=== PATIENT | male | born 1980 | race Caucasian/White ===

== ENCOUNTER → 2020-06-22 09:43 | Outpatient (BNVA) | payer OTHER, SELFPAY | PROVIDERS: Visit Provider Family Medicine | DX: R50.9 Fever, unspecified (principal) | CPT/HCPCS: 87400; 87635 ==

== ENCOUNTER → 2022-08-19 13:25 | Outpatient (BNVA) | payer OTHER, SELFPAY | PROVIDERS: Visit Provider Nurse Practitioner | DX: F33.1 Major depressive disorder, recurrent, moderate (principal); F41.1 Generalized anxiety disorder; Z79.899 Other long term (current) drug therapy | CPT/HCPCS: 80061; 83036 ==

== ENCOUNTER → 2023-12-22 10:51 | Outpatient (BNVA) | payer OTHER, SELFPAY | PROVIDERS: Visit Provider Nurse Practitioner | DX: Z79.899 Other long term (current) drug therapy (principal) | CPT/HCPCS: 80061; 83036 ==

== ENCOUNTER 2024-01-24 15:57 | Emergency (ER) | payer SELFPAY ==
[2024-01-24] VITALS (8 sets, daily range): BP systolic 114–138; BP diastolic 74–91; PULSE 68–88; RESP 12–18; TEMP 36.5; O2SAT 93–97; BMI 24.5
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
[2024-01-24] MEDS: morphine 4 mg/mL SDV 1 mL IVP (16:20)
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
[2024-01-24] MEDS: HYDROmorphone 1 mg/mL INJ 1 mL IVP ×2 (17:12→18:22)
[2024-01-24] MEDS: HYDROcodone-acetaminophen 7.5-325 mg Tablet 2 TAB PO (18:15)
--- NOTE | 2024-01-25 08:22 | DCPLANNER ---
messaged ortho for er f/u
== END 2024-01-24 18:47 | disposition home or self-care (01) ==
PROVIDERS: Emergency Provider Emergency Medicine
DX: S82.202A Unspecified fracture of shaft of left tibia, initial encounter for closed fracture (principal); S82.402A Unspecified fracture of shaft of left fibula, initial encounter for closed fracture; V29.99XA Rider (driver) (passenger) of other motorcycle injured in unspecified traffic accident, initial encounter
CPT/HCPCS: 29515; 73590; 96374; 96375; 96376; 99284; E0114; J1170; J2270

== ENCOUNTER 2024-01-25 12:20 | Outpatient (CLI) | payer SELFPAY ==
--- NOTE | 2024-01-25 12:30 | CT_ITS ---
WS: [id number] CT LEFT LOWER EXTREMITY, NONCONTRAST HISTORY: FRACTURE OF DISTAL TIBIA Technique: All CT scans at [facility] use at least one of these dose optimization techniques: automated exposure control; mA and/or kV adjustment per patient size (includes targeted exams where dose is matched to clinical indication); or iterative reconstruction. DLP: 346.76 mGy.cm COMPARISON: Radiograph 01/25/2024 Tibia: Segmental fracture involving the mid to distal third of the tibia. Fracture extends over a damian gth of approximately 12.6 cm. Proximal fracture comminuted and by 8 mm. Continuing distally the fracture is becoming more displaced and fragmented. Fracture line continues to the distal tibia but does not extend to the articulation. Butterfly fragment extends over a length of 9.8 cm. Fibula: Oblique comminuted fracture involving the proximal fibula with mild posterior angulation. The re does also appear to be an additional fragment at the distal fracture site. Fracture does not exten d to the articulation. The remaining fibula is intact. Ankle mortise appears appropriate. There is a large amount of soft tissue edema at the fracture sites . CT/CT lower leg LT wo con* [id number] IMPRESSION: 1. Segmental fracture involves the mid to distal third of the tibia extending over a length of 12.6 cm. Butterfly fragment extends over a length of 9.8 cm. 2. Oblique comminuted fracture involving the proximal fibula with mild posteri or angulation.
== END 2024-01-25 12:21 | disposition home or self-care (01) ==
PROVIDERS: Visit Provider Specialist
DX: S82.262A Displaced segmental fracture of shaft of left tibia, initial encounter for closed fracture (principal); S82.832A Other fracture of upper and lower end of left fibula, initial encounter for closed fracture; X58.XXXA Exposure to other specified factors, initial encounter; Z01.818 Encounter for other preprocedural examination
CPT/HCPCS: 36415; 73590; 73700; 80053; 85025

== ENCOUNTER → 2024-01-26 09:20 | Day surgery (SDC) | payer SELFPAY ==
[2024-01-26] VITALS (13 sets, daily range): BP systolic 117–135; BP diastolic 67–85; PULSE 18–86; RESP 17–20; TEMP 36.2–37.5; O2SAT 90–98; BMI 24.5
[2024-01-26] MEDS: gabapentin 300 mg Capsule PO (09:58)
[2024-01-26] MEDS: sodium chloride 0.9% 1,000 ML 30 ML IV (09:58)
[2024-01-26] MEDS: acetaminophen 1,000 MG/100 ML PIGGYBACK 400 MG IV (09:59)
[2024-01-26] MEDS: CELEcoxib 200 mg Capsule 400 MG PO (09:59)
--- NOTE | 2024-01-26 11:17 | ANES.PREANE2 ---
Pre-Anesthetic Assessment Height/Weight: Height 6 ft 1 in Weight 186 lb Temp Pulse Resp BP Pulse Ox O2 Del Method 97.5 F L 74 18 117/75 94 Room Air 01/26/24 09:54 01/26/24 09:54 01/26/24 09:54 01/26/24 09:54 01/26/24 09:54 01/26/24 10:03 Preop Diagnosis: Tibial fracture Operation Date: 01/26/24 10:55 Proposed Procedures p IM Tibial Nail Insertion(Left) - Leda Perez MD Was Beta Anli taken within 24 hours: N/A Was Clonidine taken within 24 hours: N/A Last intake: Intake Last Liquid Date 01/25/24 Last Liquid Time 23:00 Last Solid Date 01/25/24 Last Solid Time 20:30 Social No alcohol and No tobacco Exam alert, oriented x 3, clear to auscultation bilaterally and regular rate & rhythm Airway Submandibular: within normal limits Cervical ROM: within normal limits Mallampati: Class III Dentition: full Comments: Comments: Poor mouth opening Anesthetic Plan ASA status: 2 Anesthesia: General and Regional (specify below) Other: No prior issues with anesthesia NPO since midnight Denies any cardiac or pulmonary issues Takes clonazepam and hydroxyzine for anxiety Labs 01/25/2024 reviewed and acceptable for surgery Plan for general anesthesia with preop nerve block Medications/Allergies Home Medications Medication Instructions Recorded Confirmed Last Taken Type hydroxyzine HCl 25 mg tablet 25 mg PO BID PRN anxiety #60 tabs 12/28/20 01/25/24 01/25/24 Rx aripiprazole 5 mg tablet (Abilify) 5 mg PO DAILY #30 tabs 11/11/23 01/26/24 01/26/24 08:50 Rx venlafaxine 150 mg 150 mg PO DAILY #30 caps 11/11/23 01/26/24 01/26/24 08:30 Rx capsule,extended release 24 hr (Effexor XR) venlafaxine 75 mg capsule,extended 75 mg PO DAILY #30 caps 11/11/23 01/25/24 01/25/24 Rx release 24 hr (Effexor XR) clonazepam 0.5 mg tablet 0.5 mg PO DAILY PRN anxiety #30 12/22/23 01/25/24 Unknown Rx tabs hydrocodone 5 mg-acetaminophen 325 1 tab PO Q6H PRN pain #14 tabs 01/24/24 01/26/24 01/26/24 08:30 Rx mg tablet ondansetron 4 mg disintegrating 4 mg PO Q6H PRN nausea and 01/24/24 01/25/24 01/25/24 Rx tablet vomiting #14 tabs Allergies Allergy/AdvReac Type Severity Reaction Status Date / Time No Known Allergies Allergy Verified 01/26/24 09:41 Current Medications Generic Name Dose Route Start Last Admin Trade Name Freq PRN Reason Stop Dose Admin Sodium Chloride 1,000 mls @ 30 mls/hr 01/26/24 09:45 01/26/24 09:58 Sodium Chloride 0.9% IV 01/27/24 09:44 30 mls/hr .Q24H GERBER Administration PFSH Anesthesia Medical History On combination antipsychotic drug therapy Psychiatric care Major depressive disorder, recurrent, moderate Generalized anxiety disorder Surgical History No pertinent past surgical history Family History Other Cancer Social History Smoking and tobacco/nicotine status: never used tobacco/nicotine Alcohol intake: current Alcohol intake frequency: few times a month Alcohol type: beer Substance/Drug Use: never Data Anesthesia Cardiac Studies: No Data to Display
--- NOTE | 2024-01-26 11:57 | ANES.PROC ---
Anesthesia Procedures Procedure/Date: 01/26/24 Nerve Block ^: Nerve Block 1: Main Anesthesia: other (100mcg fentanyl and 2mg versed) Time Out Performed: Yes Consent: requested by attending/covering physician Nerve block location: popliteal Anesthesia monitors applied: pulse oximetry, EKG, BP cuff and oxygen Nerve block position: supine Anesthetic Used: ropivicaine 0.5% Amount of anesthesia used (mL): 25 Ultrasound used to: recognize landmarks Nerve Stimulator Used?: Yes Interscalene/Femoral BLK: other needle (pjnura) Injection: neg aspiration of heme Patient Tolerated Procedure: well Complications: none Additional Comments: decadron 4mg added to block Nerve Block 2: Main Anesthesia: other Time Out Performed: Yes Consent: requested by attending/covering physician Nerve block location: adductor canal Anesthesia monitors applied: pulse oximetry, EKG, BP cuff and oxygen Nerve block position: supine Anesthetic Used: ropivicaine 0.5% Amount of anesthesia used (mL): 15 Ultrasound used to: recognize landmarks Nerve Stimulator Used?: No Interscalene/Femoral BLK: other needle (pjunk) and visualize local anesthetic spread Injection: neg aspiration of heme Patient Tolerated Procedure: well Complications: none
--- NOTE | 2024-01-26 12:00 | PC.NURSE ---
Nerve block done on left leg by Dr. Guzman with 40ml 0.5 bupivicaine.
--- NOTE | 2024-01-26 12:02 | P.HPUD_ITS ---
Surgery/Procedure H&P Update DATE OF PROCEDURE: January 26, 2024 DATE H&P PERFORMED: 01/25/24 H&P UPDATE INFORMATION: I have reviewed H&P completed within last 30 days, I have examined patient prior to procedure, No changes to prior documentation and H&P is in [facility] [place] date indicated PREOP DIAGNOSIS: Tibial fracture, left PLANNED PROCEDURE: Operation Date: 01/26/24 10:55 Proposed Procedures p IM Tibial Nail Insertion(Left) - Leda Perez MD Related Problem List Diagnoses (1) Closed left tibial fracture: Qualifiers: Encounter type: initial encounter Fracture alignment: displaced Fracture morphology: segmental Tibia location: shaft Qualified Code(s): S82.262A - Displaced segmental fracture of shaft of left tibia, initial encounter for closed fracture (2) Fracture of left fibula: Qualifiers: Encounter type: initial encounter Fibula location: proximal Fracture morphology: other fracture Fracture type: closed Qualified Code(s): S82.832A - Other fracture of upper and lower end of left fibula, initial encounter for closed fracture
[2024-01-26] MEDS: ceFAZolin 2,000 mg SDV 2000 MG IVP (12:36)
[2024-01-26] MEDS: ceFAZolin 1,000 mg SDV 1000 MG IRRIGATION (13:25)
--- NOTE | 2024-01-26 14:55 | XR_ITS ---
WS: [id number] Exam: XR tibia fibula LT 2V [id number] Date/Time of Exam: 01/26/2024 2:55 PM Reason For Exam: OR PICS Limited intraoperative C-arm images of the LEFT lower leg are submitted. Comminuted fracture of the l ower tibia is stabilized with a long intramedullary ba and screws. There is limited visualization of the fracture itself. Also noted is a fracture of the upper fibula which has been described previousl erasto
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
--- NOTE | 2024-01-26 15:23 | XR_ITS ---
WS: [id number] Exam: XR tibia fibula LT 2V [id number] Date/Time of Exam: 01/26/2024 3:28 PM Reason For Exam: S/P Left tibia ORIF with tibial ba. Comminuted spiral fracture of the lower one third of the tibia is now stabilized with a long intramed ullary ba in satisfactory alignment for healing. There is a spiral fracture of the upper diaphysis o f the fibula with [id number] apposition. Surgical skin clips are seen in both the upper and lower a spects of the lower leg. XR/XR tibia fibula LT 2V [id number] IMPRESSION: 1. Satisfactory internal fixation involving a comminuted spiral fracture of the lower tibia. 2. Spiral fracture of the upper fibula also appears to be in satisfactory posit ion for healing.
[2024-01-26] MEDS: fentaNYL 50 mcg/mL INJ 2mL IVP (15:25)
[2024-01-26] MEDS: HYDROcodone-acetaminophen 5-325 mg Tablet 1 TAB PO (16:06)
--- NOTE | 2024-01-26 16:44 | ANE.PACU2 ---
Inpatient post-anesthesia follow up: Airway intact: Yes Vital signs: Temperature 97.2 F Pulse Rate 68 Respiratory Rate 18 Blood Pressure 124/78 Pulse Oximetry 98 Oxygen Delivery Me thod Room Air Oxygen Flow Rate Fraction of Inspir ed Oxygen Hydration adequate: Yes Nausea and vomiting: No Pain level: 1 Mental status: Baseline
== END | disposition home or self-care (01) ==
PROVIDERS: Visit Provider Specialist
PROC: (CPT 27758; principal; 2024-01-26 10:35)
DX: S82.262A Displaced segmental fracture of shaft of left tibia, initial encounter for closed fracture (principal); S82.832A Other fracture of upper and lower end of left fibula, initial encounter for closed fracture; V29.99XA Rider (driver) (passenger) of other motorcycle injured in unspecified traffic accident, initial encounter; F41.1 Generalized anxiety disorder; Y92.9 Unspecified place or not applicable
CPT/HCPCS: 27758; 73590; 76000; C1713; J0131; J0690; J1100; J2405; J2704; J3010; J7030

== ENCOUNTER → 2024-02-08 08:47 | Outpatient (BNVA) | payer SELFPAY | PROVIDERS: Visit Provider Nurse Practitioner | DX: S82.262D Displaced segmental fracture of shaft of left tibia, subsequent encounter for closed fracture with routine healing; S82.832D Other fracture of upper and lower end of left fibula, subsequent encounter for closed fracture with routine healing; X58.XXXD Exposure to other specified factors, subsequent encounter; Z98.890 Other specified postprocedural states | CPT/HCPCS: 73590 ==

== ENCOUNTER → 2024-02-22 10:00 | Outpatient (BNVA) | payer SELFPAY | PROVIDERS: Visit Provider Nurse Practitioner | DX: Z98.890 Other specified postprocedural states (principal); S82.262A Displaced segmental fracture of shaft of left tibia, initial encounter for closed fracture; S82.262D Displaced segmental fracture of shaft of left tibia, subsequent encounter for closed fracture with routine healing; S82.832D Other fracture of upper and lower end of left fibula, subsequent encounter for closed fracture with routine healing; X58.XXXD Exposure to other specified factors, subsequent encounter | CPT/HCPCS: 73590 ==

== ENCOUNTER 2024-03-16 01:58 | Emergency (ER) | payer SELFPAY ==
[2024-03-16 02:04] VITALS: BP 140/93; PULSE 79; RESP 18; TEMP 36.7; O2SAT 99; BMI 24.4
--- NOTE | 2024-03-16 02:06 | XRR_ITS ---
PROCEDURE INFORMATION: Exam: XR Left Tibia and Fibula Exam date and time: 03/16/2024 2:13 AM Age: 43 years old Clinical indication: Pain; Lower leg; Left; Prior surgery; Surgery date: <1 month; Surgery type: Tibia ba; Additional info: Recent FX, more pain TECHNIQUE: Imaging protocol: Radiologic exam of the left tibia and fibula. Views: 2 views. COMPARISON: CR XR tibia fibula LT 2V [id number] 02/22/2024 10:15 AM FINDINGS: Bones/joints: Oblique orientation mildly-displaced fracture lucency of the proximal fibula diaphysis redemonstrated with early bone callus changes. Spiral type distal tibial diaphyseal fracture treated with intramedullary ba redemonstrated. No interval change in alignment. No hardware loosening is identified. Minimal early bone callus at the fracture margins. Unremarkable left ankle mortise. Unremarkable left knee joint. Soft tissues: Unremarkable. XR/XR tibia fibula LT 2V [id number] IMPRESSION: Early healing changes in the tibiofibular fractures without complication identified.
[2024-03-16] MEDS: ketorolac 60 mg/2 mL INJ IM (02:28)
--- NOTE | 2024-03-16 02:41 | ED_ITS ---
HPI - Extremity Problem General: Chief complaint: Extremity Injury, Lower Stated complaint: Left Ankle Pain Time Seen by Provider: 03/16/24 02:04 History of Present Illness: Patient presents to the ER with complaints about severe pain starting yesterday around 10 PM of his left lower extremity, patient has a tib-fib fracture with operative intervention approximately 5 weeks ago. Said he was doing better. Patient did not have any trauma to it last night when the pain worsened. Patient has no other complaints at this time. Patient presented to the ER with his walking boot intact. Related Data Previous Rx's Medication Instructions Recorded hydroxyzine HCl 25 mg tablet 25 mg PO BID PRN anxiety #60 tabs 12/28/20 aripiprazole 5 mg tablet (Abilify) 5 mg PO DAILY #30 tabs 11/11/23 venlafaxine 150 mg 150 mg PO DAILY #30 caps 11/11/23 capsule,extended release 24 hr (Effexor XR) venlafaxine 75 mg capsule,extended 75 mg PO DAILY #30 caps 11/11/23 release 24 hr (Effexor XR) clonazepam 0.5 mg tablet 0.5 mg PO DAILY PRN anxiety #30 12/22/23 tabs ondansetron 4 mg disintegrating 4 mg PO Q6H PRN nausea and 01/24/24 tablet vomiting #14 tabs cyclobenzaprine 10 mg tablet 5 mg (1/2 x 10 mg) PO TID PRN 02/08/24 muscle spasm #14 tabs hydrocodone 5 mg-acetaminophen 325 1 tab PO Q6H PRN pain 7 days #14 03/04/24 mg tablet tabs Allergies Allergy/AdvReac Type Severity Reaction Status Date / Time No Known Allergies Allergy Verified 03/16/24 02:08 Review of Systems General: Reports: 10 or more systems reviewed and unremarkable except in HPI and below PFSH ED PFSH: Medical History On combination antipsychotic drug therapy Psychiatric care Major depressive disorder, recurrent, moderate Generalized anxiety disorder Surgical History Status post surgery Date of procedure: January 26, 2024 Pre-op diagnosis: Left comminuted tibial shaft fracture with proximal fibula fracture. Procedure done: Open reduction internal fixation left tibial shaft fracture utilizing [place] intramedullary nail. Implants: The [place] T2 tibial system with a size 11 mm x 390 mm tibial nail, 2 locking screws proximally and 1 locking screw distally as well as an 11.5 mm x 10 mm end cap. Surgeon: Leda Perez MD. No pertinent past surgical history Family History Other Cancer Social History Smoking and tobacco/nicotine status: never used tobacco/nicotine Alcohol intake: current Alcohol intake frequency: few times a month Alcohol type: beer Substance/Drug Use: never Physical Exam Const: COMMON NORMALS: no acute distress, average body habitus, patient oriented x3, no limitations, healthy appearing, alert and well nourished HENMT: COMMON NORMALS: normocephalic, atraumatic, hearing grossly normal bilaterally, external ears normal, Normal external nose present and moist oral m ucous membranes HEAD & SCALP: normocephalic and atraumatic NOSE: Normal external nose present EXTERNAL EAR: Yes external ears normal Neck/C-Spine: COMMON NORMALS: no JVD Chest: COMMONS NORMALS: normal inspection of the chest and normal palpation of entire chest wall Resp: COMMON NORMALS: No retractions, No use of accessory muscles and clear to auscultation bilaterally AUSCULTATION: clear to auscultation bilaterally Cardio: COMMON NORMALS: no JVD, regular rate, regular rhythm, S1 normal heart sound present, S2 normal heart sound present, No gallops present (Cardio), No clicks present (Cardio), No murmurs present (Cardio) and No rub (Cardio) RATE: regular rate RHYTHM: regular rhythm HEART SOUNDS: S1 normal heart sound present and S2 normal heart sound present GI: COMMON NORMALS: Normal to inspection, nondistended, normoactive bowel sounds present, Soft to palpation, non-tender, No hepatosplenomegaly present and no masses PALPATION: Yes Soft to palpation and Yes No hepatosplenomegaly present Neuro: COMMON NORMALS: patient oriented x3 SENSORIUM/ORIENTATION: Yes alert Course Vital Signs: Vital signs: Vital Signs Temperature 98.0 F 03/16/24 02:04 Pulse Rate 79 03/16/24 02:04 Respiratory Rate 18 03/16/24 02:04 Blood Pressure 140/93 11/20/24 02:04 Pulse Oximetry 99 03/16/24 02:04 Oxygen Delivery Me thod Room Air 03/16/24 02:04 MDM - Extremity (Nontraumatic) Medical Decision Making X-ray of tib-fib showed early healing changes of the tibial fibular fractures without complications identified. Patient given Toradol 60 mg IM. Patient be discharged home. Medical Records I reviewed the patient's medical records. Lab Data I reviewed the patient's lab results. Radiology Impressions Tibia/Fibula X-Ray 03/16/24 02:06 IMPRESSION: Early healing changes in the tibiofibular fractures without complication identified. All radiology interpretation(s) finalized by discharge Discharge Plan Discharge Patient Disposition: Home Clinical Impression: Ankle fracture Qualifiers: Encounter type: subsequent encounter Fracture type: closed Laterality: left Fracture healing: with routine healing Qualified Code(s): S82.892D - Other fracture of left lower leg, subsequent encounter for closed fracture with routine healing Condition: Stable Prescriptions: No Action clonazepam 0.5 mg tablet 0.5 mg PO DAILY PRN (Reason: anxiety) Qty: 30 0RF cyclobenzaprine 10 mg tablet 5 mg PO TID PRN (Reason: muscle spasm) Qty: 14 0RF hydroxyzine HCl 25 mg tablet 25 mg PO BID PRN (Reason: anxiety) Qty: 60 2RF aripiprazole [Abilify] 5 mg tablet 5 mg PO DAILY Qty: 30 2RF venlafaxine [Effexor XR] 75 mg capsule,extended release 24hr 75 mg PO DAILY Qty: 30 2RF venlafaxine [Effexor XR] 150 mg capsule,extended release 24hr 150 mg PO DAILY Qty: 30 2RF hydrocodone-acetaminophen 5-325 mg tablet 1 tab PO Q6H PRN (Reason: pain) 7 Days Qty: 14 0RF ondansetron 4 mg tablet,disintegrating 4 mg PO Q6H PRN (Reason: nausea and vomiting) Qty: 14 0RF Discharge Orders: Discharge ED (Routine); Ordered 03/16/24 Ordered By: Shahriar Darden Referrals: [facility], [Primary Care Provider] - 1 week Activity Restrictions/Additional Instructions: The x-ray taken showed your fracture is healing well without any complications. Please follow-up with your orthopedic surgeon as previously scheduled. Thank you for choosing [facility] for your healthcare needs today. Please realize that you were seen in the emergency department and that we are providing you with an emergency medical screening exam and this may not be a complete and all exclusive of all testing and/or medical workup we may need to determine your element or severity of your illness. It is very important that you follow-up as instructed with your primary care provider or specialist for the additional evaluation and to discuss your medical treatment plan. You may return to the emergency department should you have concerns or if your condition changes or worsens in any way. Coding Level of Care Code ED C[employer] Operator for Carmen Longoria
[2024-03-16 03:58] VITALS: BP 131/94; PULSE 56; O2SAT 99
== END 2024-03-16 03:59 | disposition home or self-care (01) ==
PROVIDERS: Emergency Provider Emergency Medicine
DX: S82.892D Other fracture of left lower leg, subsequent encounter for closed fracture with routine healing (principal); X58.XXXD Exposure to other specified factors, subsequent encounter
CPT/HCPCS: 73590; 96372; 99284; J1885

== ENCOUNTER 2024-03-19 15:07 | Emergency (ER) | payer SELFPAY ==
[2024-03-19 15:41] VITALS: BP 112/76; PULSE 72; RESP 18; TEMP 37.4; O2SAT 96; BMI 24.5
--- NOTE | 2024-03-19 15:46 | XRR_ITS ---
PROCEDURE INFORMATION: Exam: XR Left Tibia and Fibula Exam date and time: 03/19/2024 4:35 PM Age: 43 years old Clinical indication: Lower leg; Left; Prior surgery; Surgery date: 6+ months; Surgery type: Lt tibial fixation; Patient HX: Lt lower extremity pain; Post op x 2mo ago TECHNIQUE: Imaging protocol: Radiologic exam of the left tibia and fibula. Views: 2 views. COMPARISON: CR (LOW EXM, ) 03/16/2024 2:13 AM FINDINGS: Bones/joints: Early healing changes again seen of proximal fibular diaphysis fracture distal tibial diaphyseal fracture with intramedullary ba. No significant change of fracture alignment. Unremarkable left knee joint. Soft tissues: Normal. XR/XR tibia fibula LT 2V [id number] IMPRESSION: As above.
--- NOTE | 2024-03-19 18:23 | W.ED.EXTPRO ---
HPI - Extremity Problem General: Chief complaint: Extremity Problem,Nontraumatic Stated complaint: increased pain in right ankel injury Time Seen by Provider: 03/19/24 15:23 History of Present Illness: John Uriostegui is a 43-year-old male that presents to the emergency department with left medial ankle pain. Onset of symptoms approximately 4 days ago. Patient states he fractured his tibia and fibula in early January. This operatively fixed. Has had follow-up with Dr. Perez since then and was doing well. At the beginning of February he increased his activity. He did not initially see any worsening symptoms but in the last 4 days he has developed this burning tearing pain medial ankle with numbness in the dorsum of the foot. He has no wounds. He does have left lower extremity swelling. He states that this has not changed in the last couple months. Patient denies any trauma He denies any new injuries to the area He is wearing his walking boot when he is ambulatory but otherwise taking it off at rest. Related Data Previous Rx's Medication Instructions Recorded hydroxyzine HCl 25 mg tablet 25 mg PO BID PRN anxiety #60 tabs 12/28/20 aripiprazole 5 mg tablet (Abilify) 5 mg PO DAILY #30 tabs 11/11/23 venlafaxine 150 mg 150 mg PO DAILY #30 caps 11/11/23 capsule,extended release 24 hr (Effexor XR) venlafaxine 75 mg capsule,extended 75 mg PO DAILY #30 caps 11/11/23 release 24 hr (Effexor XR) clonazepam 0.5 mg tablet 0.5 mg PO DAILY PRN anxiety #30 12/22/23 tabs ondansetron 4 mg disintegrating 4 mg PO Q6H PRN nausea and 01/24/24 tablet vomiting #14 tabs cyclobenzaprine 10 mg tablet 5 mg (1/2 x 10 mg) PO TID PRN 02/08/24 muscle spasm #14 tabs hydrocodone 5 mg-acetaminophen 325 1 tab PO Q6H PRN pain 7 days #14 03/16/24 mg tablet tabs Allergies Allergy/AdvReac Type Severity Reaction Status Date / Time No Known Allergies Allergy Verified 03/19/24 15:47 Review of Systems General: Reports: 10 or more systems reviewed and unremarkable except in HPI and below PFSH ED PFSH: Medical History On combination antipsychotic drug therapy Psychiatric care Major depressive disorder, recurrent, moderate Generalized anxiety disorder Surgical History Status post surgery Date of procedure: January 26, 2024 Pre-op diagnosis: Left comminuted tibial shaft fracture with proximal fibula fracture. Procedure done: Open reduction internal fixation left tibial shaft fracture utilizing [place] intramedullary nail. Implants: The [place] T2 tibial system with a size 11 mm x 390 mm tibial nail, 2 locking screws proximally and 1 locking screw distally as well as an 11.5 mm x 10 mm end cap. Surgeon: Leda Perez MD. No pertinent past surgical history Family History Other Cancer Social History Smoking and tobacco/nicotine status: never used tobacco/nicotine Alcohol intake: current Alcohol intake frequency: few times a month Alcohol type: beer Substance/Drug Use: never Physical Exam Const: COMMON NORMALS: no acute distress, average body habitus, patient oriented x3 and healthy appearing Neck/C-Spine: COMMON NORMALS: no JVD Resp: COMMON NORMALS: normal respiratory effort, No retractions and No use of accessory muscles Cardio: COMMON NORMALS: no JVD and Peripheral pulses 2+ throughout PERIPHERAL PULSES: Peripheral pulses 2+ throughout Extremity: OTHER: Left lower extremity: Skin is clean dry and intact Surgical scars are well-healed He has full active range of motion of the knee He has full active range of motion of the ankle He is tender to palpation over the medial ankle extending into the hindfoot. He has numbness in the dorsum of the foot He is able to dorsiflex plantarflex the foot Is able to dorsiflex great toe Negative Rishabh Pedal pulses are palpable Sensation intact to light touch but has a numbness in the dorsum of the foot Neuro: COMMON NORMALS: patient oriented x3 Psych: COMMON NORMALS: mental status grossly normal, Normal thought process present, cooperative, normal affect and activity/motor behavior normal THOUGHT PROCESS: Normal thought process present Course Vital Signs: Vital signs: Vital Signs Temperature 99.3 F 03/19/24 15:41 Pulse Rate 72 03/19/24 15:41 Respiratory Rate 18 03/19/24 15:41 Blood Pressure 112/76 03/19/24 15:41 Pulse Oximetry 96 03/19/24 15:41 Oxygen Delivery Me thod Room Air 03/19/24 15:41 MDM - Extremity (Nontraumatic) Medical Decision Making Patient evaluated in the emergency department today for left ankle pain. He underwent XR imaging of the left tibia/fibula despite ankle imaging ordered. The mortise appears to be symmetrical. There is no subluxation in the ankle joint. Of note the distal locking screw appears to be fractured. This is new from his last image at his surgeon's office. Does not appear that the nail has changed position and the tibial shaft fracture reveals interval healing. Talked with patient about diagnostic findings as well as his symptoms. He is wearing his boot over his clothing. He is wearing thicker clothing that may be causing a pressure injury to the medial ankle. I talked with him about using it barriers between the boot and his skin but to ensure that the material is not too thick to cause pressure points. I have advised him to ice and elevate the extremity. Of also advised him to use NSAIDs and Tylenol. He needs to follow-up with Dr. Perez. He has a follow-up appointment on Thursday. At this time no further diagnostics are warranted. Will have him follow-up with his surgeon and return to the emergency department as needed for new concerning or worsening symptoms Lab Data Radiology Impressions Tibia/Fibula X-Ray 03/19/24 15:46 IMPRESSION: As above. All radiology interpretation(s) finalized by discharge Discharge Plan Discharge Patient Disposition: Home Clinical Impression: Status post surgery, Acute ankle pain, Localized swelling of left lower extremity Condition: Stable Prescriptions: No Action clonazepam 0.5 mg tablet 0.5 mg PO DAILY PRN (Reason: anxiety) Qty: 30 0RF cyclobenzaprine 10 mg tablet 5 mg PO TID PRN (Reason: muscle spasm) Qty: 14 0RF hydroxyzine HCl 25 mg tablet 25 mg PO BID PRN (Reason: anxiety) Qty: 60 2RF aripiprazole [Abilify] 5 mg tablet 5 mg PO DAILY Qty: 30 2RF venlafaxine [Effexor XR] 75 mg capsule,extended release 24hr 75 mg PO DAILY Qty: 30 2RF venlafaxine [Effexor XR] 150 mg capsule,extended release 24hr 150 mg PO DAILY Qty: 30 2RF hydrocodone-acetaminophen 5-325 mg tablet 1 tab PO Q6H PRN (Reason: pain) 7 Days Qty: 14 0RF ondansetron 4 mg tablet,disintegrating 4 mg PO Q6H PRN (Reason: nausea and vomiting) Qty: 14 0RF Discharge Orders: Discharge ED (Routine); Ordered 03/19/24 Ordered By: Elie Angel Discharge Diet: Advance as tolerated Discharge Activity: Resume usual activity Patient Instructions: Pain Management (ED), Pain Management After Surgery (DC), Opioid Safety, Pain Management Activity Restrictions/Additional Instructions: Please keep a barrier between your skin and the boot.. Bulky materials as this may cause pressure on your skin. Ice and elevate the extremity use NSAIDs like ibuprofen, Voltaren/diclofenac, naproxen as well as Tylenol. Follow-up with Dr. Perez as planned Coding Level of Care Code ED [employer] Instructor for Carmen Longoria
[2024-03-19] MEDS: ketorolac 60 mg/2 mL INJ IM (18:36)
[2024-03-19 18:59] VITALS: BP 133/79; PULSE 74; RESP 16; O2SAT 97
== END 2024-03-19 19:01 | disposition home or self-care (01) ==
PROVIDERS: Emergency Provider Nurse Practitioner
DX: M25.572 Pain in left ankle and joints of left foot (principal); R22.42 Localized swelling, mass and lump, left lower limb; Z98.890 Other specified postprocedural states
CPT/HCPCS: 73590; 96372; 99284; J1885

== ENCOUNTER → 2024-03-22 11:27 | Outpatient (BNVA) | payer SELFPAY | PROVIDERS: Visit Provider Nurse Practitioner | DX: Z98.890 Other specified postprocedural states (principal); S82.262D Displaced segmental fracture of shaft of left tibia, subsequent encounter for closed fracture with routine healing; X58.XXXD Exposure to other specified factors, subsequent encounter | CPT/HCPCS: 73590 ==

== ENCOUNTER → 2024-03-28 15:36 | Outpatient (BNVA) | payer SELFPAY | PROVIDERS: Visit Provider Nurse Practitioner | DX: S82.262D Displaced segmental fracture of shaft of left tibia, subsequent encounter for closed fracture with routine healing; X58.XXXD Exposure to other specified factors, subsequent encounter; Z98.890 Other specified postprocedural states | CPT/HCPCS: 73590 ==

== ENCOUNTER 2024-05-08 18:42 | Emergency (ER) | payer SELFPAY ==
[2024-05-08 19:12] VITALS: BP 112/80; PULSE 81; RESP 14; TEMP 36.7; O2SAT 98; BMI 24.5
--- NOTE | 2024-05-08 20:40 | ED_ITS ---
HPI - Extremity Problem General: Chief complaint: Extremity Injury, Lower Stated complaint: L. leg ty giving problems Time Seen by Provider: 05/08/24 20:10 Source: patient Mode of arrival: ambulatory Limitations: no limitations History of Present Illness: 43-year-old male history of left lower l eg fracture he is currently in a cast he states he is supposed to have the cast off last week they have rescheduled appointment he states he wants the cast off today as it is rubbing on him and he has an abrasion to his toe it is causing pain he has no other complaints at this time Associated symptoms: Deny chest pain, fever(s) or rash Related Data Previous Rx's Medication Instructions Recorded hydroxyzine HCl 25 mg tablet 25 mg PO BID PRN anxiety #60 tabs 12/28/20 clonazepam 0.5 mg tablet 0.5 mg PO DAILY PRN anxiety #30 12/22/23 tabs ondansetron 4 mg disintegrating 4 mg PO Q6H PRN nausea and 01/24/24 tablet vomiting #14 tabs cyclobenzaprine 10 mg tablet 5 mg (1/2 x 10 mg) PO TID PRN 02/08/24 muscle spasm #14 tabs meloxicam 15 mg tablet 15 mg PO DAILY #30 tabs 03/22/24 hydrocodone 5 mg-acetaminophen 325 1 tab PO Q6H PRN pain 7 days #14 04/01/24 mg tablet tabs aripiprazole 5 mg tablet (Abilify) 5 mg PO DAILY #30 tabs 05/03/24 venlafaxine 150 mg 150 mg PO DAILY #30 caps 05/03/24 capsule,extended release 24 hr (Effexor XR) venlafaxine 75 mg capsule,extended 75 mg PO DAILY #30 caps 05/03/24 release 24 hr (Effexor XR) Allergies Allergy/AdvReac Type Severity Reaction Status Date / Time No Known Allergies Allergy Verified 05/08/24 19:15 Review of Systems Const: Denies: fever(s) or chills ENMT: Denies: throat pain or dental pain Card: Denies: chest pain Resp: Denies: dyspnea GI: Denies: abdominal pain, nausea, vomiting or diarrhea Musc: Reports: extremity pain; Denies: neck pain or back pain Skin/Breast: Denies: rash Neuro: Denies: headache(s) PFSH ED PFSH: Medical History On combination antipsychotic drug therapy Psychiatric care Major depressive disorder, recurrent, moderate Generalized anxiety disorder Surgical History Status post surgery Date of procedure: January 26, 2024 Pre-op diagnosis: Left comminuted tibial shaft fracture with proximal fibula fracture. Procedure done: Open reduction internal fixation left tibial shaft fracture utilizing [place] intramedullary nail. Implants: The [place] T2 tibial system with a size 11 mm x 390 mm tibial nail, 2 locking screws proximally and 1 locking screw distally as well as an 11.5 mm x 10 mm end cap. Surgeon: Leda Perez MD. No pertinent past surgical history Family History Other Cancer Social History Smoking and tobacco/nicotine status: never used tobacco/nicotine Alcohol intake: current Alcohol intake frequency: few times a month Alcohol type: beer Substance/Drug Use: never Physical Exam Const: COMMON NORMALS: no acute distress, patient oriented x3 and healthy appearing HENMT: COMMON NORMALS: normocephalic and atraumatic HEAD & SCALP: normocephalic and atraumatic Eye: COMMON NORMALS: conjunctivae normal CONJUNCTIVA: Yes conjunctivae normal Neck/C-Spine: COMMON NORMALS: full ROM and supple Chest: COMMONS NORMALS: normal inspection of the chest Resp: COMMON NORMALS: normal respiratory effort Extremity: COMMON NORMALS: full ROM NARRATIVE EXTREMITY EXAM: Cast in place to left lower leg does have abrasion to left great toe from rubbing on the cast Neuro: COMMON NORMALS: patient oriented x3, moves all extremities and no focal motor deficits Psych: COMMON NORMALS: mental status grossly normal, Normal thought process present and cooperative THOUGHT PROCESS: Normal thought process present Skin: COMMON NORMALS: no rashes or lesions noted and no wounds GENERAL SKIN EXAM: no rashes or lesions noted Course Vital Signs: Vital signs: Vital Signs Temperature 98.0 F 05/08/24 19:12 Pulse Rate 81 05/08/24 19:12 Respiratory Rate 14 05/08/24 19:12 Blood Pressure 112/80 05/08/24 19:12 Pulse Oximetry 98 05/08/24 19:12 MDM - Extremity (Nontraumatic) Medical Decision Making Patient presents here wanting to have his cast removed did remove his cast did place him in a posterior splint he can have it removed when he follows up with his orthopedist return if worsening No radiology studies performed this visit Discharge Plan Discharge Patient Disposition: Home Clinical Impression: Encounter for cast removal Condition: Stable Prescriptions: No Action meloxicam 15 mg tablet 15 mg PO DAILY Qty: 30 0RF venlafaxine [Effexor XR] 75 mg capsule,extended release 24hr 75 mg PO DAILY Qty: 30 2RF venlafaxine [Effexor XR] 150 mg capsule,extended release 24hr 150 mg PO DAILY Qty: 30 2RF aripiprazole [Abilify] 5 mg tablet 5 mg PO DAILY Qty: 30 2RF clonazepam 0.5 mg tablet 0.5 mg PO DAILY PRN (Reason: anxiety) Qty: 30 0RF cyclobenzaprine 10 mg tablet 5 mg PO TID PRN (Reason: muscle spasm) Qty: 14 0RF hydroxyzine HCl 25 mg tablet 25 mg PO BID PRN (Reason: anxiety) Qty: 60 2RF hydrocodone-acetaminophen 5-325 mg tablet 1 tab PO Q6H PRN (Reason: pain) 7 Days Qty: 14 0RF ondansetron 4 mg tablet,disintegrating 4 mg PO Q6H PRN (Reason: nausea and vomiting) Qty: 14 0RF Discharge Orders: Discharge ED (Routine); Ordered 05/08/24 Ordered By: Shayy Jameson Discharge Diet: Advance as tolerated Discharge Activity: Resume usual activity Patient Instructions: Pain Management Coding Level of Care Code ED [employer] Teacher for Carmen Longoria
--- NOTE | 2024-05-08 21:32 | PC.NURSE ---
Vaseline gauze to the greater toe prior to postierior splint placement.
[2024-05-08 21:33] VITALS: BP 139/72; PULSE 78; RESP 16; O2SAT 98
== END 2024-05-08 21:36 | disposition home or self-care (01) ==
PROVIDERS: Emergency Provider Emergency Medicine
DX: Z47.89 Encounter for other orthopedic aftercare (principal)
CPT/HCPCS: 29515; 99283; E0114

== ENCOUNTER → 2024-05-30 09:54 | Outpatient (BNVA) | payer SELFPAY | PROVIDERS: Visit Provider Nurse Practitioner | DX: Z98.890 Other specified postprocedural states (principal); S82.262D Displaced segmental fracture of shaft of left tibia, subsequent encounter for closed fracture with routine healing; M79.672 Pain in left foot; X58.XXXD Exposure to other specified factors, subsequent encounter | CPT/HCPCS: 73590; 73630 ==

== ENCOUNTER → 2024-07-06 15:00 | Outpatient (BNVA) | payer SELFPAY | PROVIDERS: Visit Provider Nurse Practitioner | DX: Z98.890 Other specified postprocedural states (principal); M79.672 Pain in left foot | CPT/HCPCS: 73590 ==

== ENCOUNTER → 2025-03-27 13:34 | Outpatient (BNVA) | payer OTHER, SELFPAY | PROVIDERS: Visit Provider Nurse Practitioner | DX: Z79.899 Other long term (current) drug therapy (principal) | CPT/HCPCS: 80061; 83036 ==